=== PATIENT | male | born 1995 | race Two or more races ===

== ENCOUNTER 2018-11-08 07:25 | Inpatient (IN) | payer MEDICAID ==
[~2018-11-08] VITALS: Ht 165.1 cm; Wt 74.4 kg
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
[2018-11-08 09:21] LABS: BASOPHILS % (AUTO) 0.3 % (0.0-2.0); EOSINOPHILS % (AUTO) 0.3 % (0.0-6.0); HEMATOCRIT 40 % (39-51); HEMOGLOBIN 13.4 g/dL (13.5-17.5); LYMPHOCYTES # (AUTO) 0.8 /CMM (0.8-4.8); LYMPHOCYTES % (AUTO) 8.3 % (20.0-44.0); MEAN CORPUSCULAR HGB CONC 34 g/dl (31.0-36.0); MEAN CORPUSCULAR VOLUME 89 fL (80-96); MONOCYTES # (AUTO) 0.4 /CMM (0.1-1.30); MONOCYTES % (AUTO) 3.7 % (2.0-12.0); NEUTROPHILS # (AUTO) 8.4 /CMM (1.8-8.9); NEUTROPHILS % (AUTO) 87.4 % (43.0-81.0); PLATELET COUNT (AUTO) 244 /CMM (150-450); RED BLOOD CELL COUNT(AUTO) 4.46 MIL/uL (4.5-6.0); WHITE BLOOD COUNT (AUTO) 9.6 K/uL (4.3-11.0)
[2018-11-08 09:24] LABS: CALCIUM, SERUM 7.9 mg/dL (8.5-10.1); CARBON DIOXIDE 27 mmol/L (21-32); CHLORIDE 105 mmol/L (98-107); CREATININE 0.8 mg/dL (0.6-1.3); GLUCOSE 94 mg/dL (74-106); POTASSIUM 3.5 mmol/L (3.5-5.1); SODIUM SERUM 137 mmol/L (136-145); UREA NITROGEN, BLOOD 10 mg/dL (7-18)
[2018-11-08 09:30] LABS: ALANINE AMINOTRANSFERASE 39 U/L (12-78); ALBUMIN 3.6 g/dL (3.4-5.0); ALCOHOL, BLOOD < 3 mg/dL (0-0); ALKALINE PHOSPHATASE 108 U/L (46-116); ASPARTATE AMINOTRANSFERASE 34 U/L (15-37); BILIRUBIN,DIRECT 0.2 mg/dL (0.0-0.2); BILIRUBIN,TOTAL 0.9 mg/dL (0.2-1.0); TOTAL PROTEIN, SERUM 7.3 g/dL (6.4-8.2)
--- NOTE | 2018-11-08 11:50 | NUR ---
kris castillo electron beam photo mask technician
--- NOTE | 2018-11-08 12:17 | NUR ---
CALLED NURSING SUP. FOR MS BED
--- NOTE | 2018-11-08 12:24 | NUR ---
STANISLAV CARRILLO, JUSTIN WELLER ANIMATION PRODUCER ANNUAL GREENHOUSE MANAGER
--- NOTE | 2018-11-08 12:31 | NUR ---
MS [id number] IS THE NURSE
[2018-11-08] MEDS ORDERED: MAG HYDROX/AL HYDROX/SIMETH 30 ML UDC PO PRN (13:00)
[2018-11-08] MEDS ORDERED: ONDANSETRON HCL/PF 4 MG/2 ML VIAL IVP PRN (13:00)
[2018-11-08] MEDS ORDERED: MORPHINE SULFATE INJ 2 MG/ML DISP.SYRIN IV PRN (13:00)
[2018-11-08] MEDS ORDERED: MAGNESIUM HYDROXIDE 30 ML UDC PO PRN (13:00)
[2018-11-08] MEDS ORDERED: ACETAMINOPHEN 325 MG TABLET PO PRN (13:00)
[2018-11-08] MEDS ORDERED: HYDROCODONE/APAP 5/325MG 1 EACH TABLET PO PRN (13:00)
[2018-11-08 14:10] LABS: APPEARANCE,URINE CLOUDY (CLEAR); BILIRUBIN,URINE NEGATIVE (NEGATIVE); BLOOD, URINE NEGATIVE Ery/uL (NEGATIVE); COLOR,URINE YELLOW (YELLOW); KETONES,URINE NEGATIVE (NEGATIVE); LEUKOCYTE ESTERASE ,URINE NEGATIVE (NEGATIVE); NITRITE, URINE NEGATIVE (NEGATIVE); PH,URINE 7.5 (5.0-8.0); PROTEIN,URINE NEGATIVE (NEGATIVE); UGLUCOSE NEGATIVE (NEGATIVE)
[2018-11-08 14:44] LABS: BACTERIA,URINE None seen /HPF (None Seen); RBC,URINE 0-2 /HPF (0-2); SQUAMOUS EPITHELIAL CELL,UR Rare /HPF (None Seen); WBC,URINE 0-2 /HPF (0-3)
[2018-11-08 16:00] VITALS: BP 114/68
--- NOTE | 2018-11-08 16:31 | NUR ---
patient wheeled to [facility] in no apparent distress noted.
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
--- NOTE | 2018-11-08 17:03 | NUR ---
MS BIOCHEMISTRY TEACHER ORDER DONE BY MERA MADE AND CARRIED OUT.
--- NOTE | 2018-11-08 18:00 | NUR ---
ms rn was seen by ortho, will have a surgery in am.
--- NOTE | 2018-11-08 18:52 | NUR ---
ms rn on bed, no distress noted.
[2018-11-08] MEDS: IV NS 0.9% 1,000 ML IV PRN (19:08)
--- NOTE | 2018-11-08 19:30 | NUR ---
RECEIVED PATIENT IN BED ASLEEP, EASILY AROUSABLE. AO X 3, ABLE TO MAKE NEEDS KNOWN. NO ACUTE DISTRESS NOTED. DENIES ANY PAIN LONG RIGHT FOOT IN IMMOBILIZED. IV SITE PATENT, INTACT; IVF INFUSING ORDERED. RIGHT FOOT ELEVATED ABOVE THE HEART. RIGHT FOOT DRESSING IN PLACE. SAFETY REMINDERS GIVEN. ON LOW BED WITH BILATERAL UPPER SIDE RAILS UP. CALL MARSHALL WITHIN EASY REACH. WILL CONTINUE TO MONITOR.
[2018-11-08 20:00] VITALS: BP 111/68
--- NOTE | 2018-11-09 06:30 | NUR ---
PATIENT ASLEEP, EASILY AROUSABLE. RESPIRATIONS EVEN. NO SIGNS OF PAIN NOTED. NPO SINCE MIDNIGHT. RIGHT FOOT ELEVATED ABOVE THE HEART. RIGHT FOOT DRESSING IN PLACE. IVF INFUSING ORDERED. NEEDS ATTENDED. SAFETY REMINDERS AND COMFORT MEASURES IN PLACE. WILL GIVE REPORT TO DAY SHIFT FOR CONTINUITY OF CARE.
[2018-11-09] MEDS ORDERED: ANESTHESIA TRAY IN PYXIS 1 EA TRAY MC ONE (07:00)
[2018-11-09] MEDS ORDERED: BACITRACIN 50000 UNITS/VIAL ONE (07:00)
[2018-11-09] MEDS ORDERED: BUPIVACAINE 0.5 % PF 150 MG/30 ML VIAL ONE (07:00)
[2018-11-09] MEDS ORDERED: MIDAZOLAM HCL 2 MG/2ML VIAL ONE (07:05)
[2018-11-09] MEDS ORDERED: ROCURONIUM BROMIDE 50 MG/5 ML ONE ×2 (07:06→07:35)
[2018-11-09] MEDS ORDERED: FENTANYL PF 250MCG/5ML AMPUL ONE (07:06)
--- NOTE | 2018-11-09 07:52 | NUR ---
MS RN OPENING NOTES RECEIVED PATIENT IN STABLE CONDITION. IN NO APPARENT DISTRESS. BEDSIDE RAILS ARE UPX2. BED IS LOCKED AND LOWERED. CALL LIGHT IS WITHIN REACH. IV LINE IS INTACT AND PATENT. WILL CONTINUE TO MONITOR PATIENT. PATIENT TAKEN TO OPERATION ROOM FOR OPEN REDUCTION INTERNAL FIXATION AT 0720.
[2018-11-09 08:09] LABS: BASOPHILS % (AUTO) 0.2 % (0.0-2.0); HEMATOCRIT 44 % (39-51); LYMPHOCYTES # (AUTO) 1.5 /CMM (0.8-4.8); LYMPHOCYTES % (AUTO) 19.2 % (20.0-44.0); MEAN CORPUSCULAR HGB CONC 34 g/dl (31.0-36.0); MEAN CORPUSCULAR VOLUME 88 fL (80-96); MONOCYTES # (AUTO) 0.7 /CMM (0.1-1.30); MONOCYTES % (AUTO) 9.5 % (2.0-12.0); NEUTROPHILS # (AUTO) 5.4 /CMM (1.8-8.9); NEUTROPHILS % (AUTO) 70.1 % (43.0-81.0); PLATELET COUNT (AUTO) 243 /CMM (150-450); RED BLOOD CELL COUNT(AUTO) 4.97 MIL/uL (4.5-6.0); WHITE BLOOD COUNT (AUTO) 7.7 K/uL (4.3-11.0)
[2018-11-09 08:25] LABS: ALBUMIN 3.4 g/dL (3.4-5.0); BILIRUBIN,TOTAL 2.1 mg/dL (0.2-1.0); CALCIUM, SERUM 8.4 mg/dL (8.5-10.1); CREATININE 0.8 mg/dL (0.6-1.3); MAGNESIUM 1.9 mg/dL (1.8-2.4); PHOSPHORUS 3.3 mg/dL (2.5-4.9); POTASSIUM 3.9 mmol/L (3.5-5.1); TOTAL PROTEIN, SERUM 7.1 g/dL (6.4-8.2)
[2018-11-09 11:30] VITALS: BP 107/72
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
[2018-11-09 16:00] VITALS: BP 119/80
--- NOTE | 2018-11-09 16:53 | NUR ---
CALLED PHARMACY TO PROVIDE ANCEF. PHARMACY WILL PROVIDE.
[2018-11-09] MEDS: ANCEF 1 GM/50 ML D5W IV SCH ×2 (17:10)
[2018-11-09] MEDS: IV NS 0.9% 1,000 ML IV PRN (18:29)
[2018-11-09] MEDS: HYDROCODONE/APAP 5/325MG 1 EACH TABLET PO PRN (18:33)
--- NOTE | 2018-11-09 19:35 | NUR ---
MS RN NOTES RECEIVED RESTING COMFORTABLY ON BED,S/P ORIF RIGHT DISTAL FIBULA AND MALEOLUS FRACTURE,A/O C4,RIGHT LEG DRESSING INTACT AND DRY ELEVATED ON PILLOWS.C/O MODERATE PAIN,WILL MEDICATE.NS AT 75ML/HR RATE INFUSING WELL ON RIGHT,SITE PATENT.WILL CONTINUE TO MONITOR,CALL LIGHT IN REACH,NEEDS ANTICIPATED.
[2018-11-09 20:00] VITALS: BP 109/69
[2018-11-10] MEDS: ANCEF 1 GM/50 ML D5W IV SCH ×2 (00:01)
[2018-11-10] MEDS: HYDROCODONE/APAP 5/325MG 1 EACH TABLET PO PRN ×3 (00:12→08:41)
--- NOTE | 2018-11-10 00:12 | NUR ---
MS RN NOTES PAIN MANAGEMENT C/O RIGHT LEG PAIN 7/10 ON PAIN SCALE,NORCO 5/325MG,2 TABS PO GIVEN ORDERED FOR MODERATE PAIN
--- NOTE | 2018-11-10 00:35 | NUR ---
MS RN NOTES LAST DOSE OF ANCEF 1 GM IVPB HUNG
--- NOTE | 2018-11-10 04:50 | NUR ---
MS RN NOTES AWAKE,C/P PAIN ON RIGHT LEG 6/10 ON PAIN SCALE,NORCO 5/325MG,2 TABS PO GIVEN ORDERED.CONTINUE ELEVATION OF RIGHT LEG ON PILLOWS
--- NOTE | 2018-11-10 05:55 | NUR ---
MS RN NOTES SLEPT WELL,PAIN MANAGEMENT EFFECTIVE,RIGHT RIGHT LEG ELEVATED ON PILLOWS AT ALL TIMES.IVF IN PROGRESS.IN NO ACUTE DISTRESS.WILL ENDORSE TO DAY NURSE FOR JACY
[2018-11-10 06:40] LABS: BASOPHILS % (AUTO) 0.3 % (0.0-2.0); EOSINOPHILS % (AUTO) 0.5 % (0.0-6.0); HEMATOCRIT 41 % (39-51); HEMOGLOBIN 14.2 g/dL (13.5-17.5); LYMPHOCYTES # (AUTO) 1.3 /CMM (0.8-4.8); LYMPHOCYTES % (AUTO) 14.4 % (20.0-44.0); MEAN CORPUSCULAR HGB CONC 34 g/dl (31.0-36.0); MEAN CORPUSCULAR VOLUME 88 fL (80-96); MONOCYTES # (AUTO) 0.7 /CMM (0.1-1.30); MONOCYTES % (AUTO) 8.4 % (2.0-12.0); NEUTROPHILS # (AUTO) 6.8 /CMM (1.8-8.9); NEUTROPHILS % (AUTO) 76.4 % (43.0-81.0); PLATELET COUNT (AUTO) 240 /CMM (150-450); RED BLOOD CELL COUNT(AUTO) 4.69 MIL/uL (4.5-6.0); WHITE BLOOD COUNT (AUTO) 8.9 K/uL (4.3-11.0)
[2018-11-10 06:54] LABS: CALCIUM, SERUM 7.9 mg/dL (8.5-10.1); CREATININE 0.7 mg/dL (0.6-1.3)
--- NOTE | 2018-11-10 07:48 | NUR ---
M/S RN OPENING NOTES RECEIVED PATIENT ON BED ASLEEP BUT EASY AROUSABLE, A/O X4 AND ABLE TO MAKE NEEDS KNOWN. RESPIRATION EVEN AND NON LABORED WITH NO SHORTNESS OF BREATH. ABDOMEN SOFT AND NON DISTENDED WITH ACTIVE BOWEL SOUNDS. SKIN WARM TO TOUCH WITH ABRASION AT BOTH ELBOW DUE TO FALL. DENIES PAIN AND DISCOMFORT AT THIS TIME. IV AT 75 GTTS/MIN AT RIGHT ANTECUBITAL ARM WITH NO S/SX OF INFILTRATION. ALL CONCERNS ATTENDED. PLACED CALL LIGHT WITHIN REACH TO ENSURE SAFETY. WILL CONTINUE TO EVALUATE CARE.
[2018-11-10 08:00] VITALS: BP 117/70
--- NOTE | 2018-11-10 08:30 | NUR ---
PATIENT SEEN AND EVALUATED BY JUSTIN WITH ORDER FOR DISCHARGE TODAY. ORDER NOTED AND CARRIED OUT. PATIENT NOTIFIED AND WILL GO HOME WITH JERONIMO (MOTHER).
[2018-11-10] MEDS ORDERED: ASPIRIN 325 MG TABLET PO SCH (09:00)
--- NOTE | 2018-11-10 10:37 | NUR ---
CATINA met with pt. to discuss discharge plan. Pt. is alert and oriented x 4. Pt. states he will be going to his mother Karin's house located at [address], in [place]. . Pt. signed Homeless patient waiver form and was given the following resources: Homeless Resources which include [facility] program and [facility] Homeless Resource Directory which includes Hot meals, showers, housing etc. SW provided education and information about Substance Abuse and ETOH Treatment Centers, and patient was receptive to the resources. SW also gave pt. referrals to [facility] Substance Abuse Self-Helpline ([phone]); [facility] [[address] [place] [address]; [phone]]; [facility] [[address] [place] [address]; [phone]]; [facility] [[address] [place] [address]; [phone]]; [facility] [[address] [place] [address]; [phone]]; [facility] [[address] [place] [address]; [phone]], and the [facility] [[address] [place] [address]; [phone]]. Pt. will require taxi transportation to his mother's house. REFUGIO Miner informed of pt's discharge plan. No other social service needs are requested at this time. SW is available, if needed.
--- NOTE | 2018-11-10 11:24 | NUR ---
M/S RN PATIENT SEEN BY SHAVON GARCIA AND CLEARED PATIENT FROM SURGERY. ORDERED PT EVAL. ORDER NOTED AND CARRIED OUT. PATIENT NOTIFIED. WILL CONTINUE TO EVALUATE CARE.
[2018-11-10] MEDS ORDERED: ONDA4TAB5 PO (12:18)
[2018-11-10] MEDS ORDERED: ASPI-992 PO (12:18)
[2018-11-10] MEDS ORDERED: HYDR-4384 PO (12:18)
--- NOTE | 2018-11-10 14:45 | NUR ---
MS/DROP TESTER PATIENT DISCHARGE HOME IN STABLE CONDITION. A/O X 4. NO SIGNS OF ACUTE DISTRESS. NO COMPLAIN OF PAIN OR DISCOMFORT. DISCHARGE EDUCATION AND TEACHINGS PROVIDED, MADE AWARE TO FOLLOW UP WITH DR MORRIS WITHIN 2 WEEKS FOR [place] REMOVAL . ALSO MADE AWARE NON WEIGHT BEARING TO RIGHT LOWER EXTREMITY FOR 6 WEEKS. VERBALIZED UNDERSTANDING. NAME BAND AND IV LINE REMOVED. CRUTCHES PROVIDED AND TAUGHT BY P.T. REGARDING HOW TO USE IT, VERBALIZED UNDERSTANDING. ALL NEEDS ATTENDED TO. LEFT IN STABLE CONDITION ACCOMPANIED BY MOTHER, TAXI VOUCHER PROVIDED.
== END 2018-11-10 14:45 | disposition home or self-care (01) | DRG 313 ==
LOC: ER 07:29 → MED 13:31
PROVIDERS: ADMIT Nurse Practitioner Acute Care; ATTEND Nurse Practitioner Acute Care
PROC: 0QSG04Z Reposition Right Tibia with Internal Fixation Device, Open Approach (ICD-10-PCS; principal; 2018-11-09)
PROC: 0QSJ04Z Reposition Right Fibula with Internal Fixation Device, Open Approach (ICD-10-PCS; principal; 2018-11-09)
DX: S82.851A Displaced trimalleolar fracture of right lower leg, initial encounter for closed fracture (principal); F15.11 Other stimulant abuse, in remission; V00.141A Fall from scooter (nonmotorized), initial encounter; Z59.0 Homelessness; Y92.488 Other paved roadways as the place of occurrence of the external cause; Y93.I9 Activity, other involving external motion
CPT/HCPCS: 36415; 71045-TC; 73590-TC; 73600-TC; 73610-TC; 80048-TC; 80053-TC; 80061-TC; 80076-TC; 80305; 81000-TC; 83735-TC; 84100-TC; 85025-TC; 85730-TC; 86850-TC; 87081-TC; A6402; C1713; C1769; G0378; G0480; J0690; J2250; J2405; J2704; J2710; J3010; J3490; J7030; J7060